=== PATIENT | female | born 1980 | race Caucasian/White ===

== ENCOUNTER → 2016-08-14 09:59 | Day surgery (SDC) | payer BC ==
[~2016-08-14 09:59] MED LIST: Buffered Lidocaine 1% SYRIN* 3 ML/SYR SYRINGE INTRADERM ONE; Bupivacaine 0.5% SDV PF* 30 ML VIAL ONE; Clindamycin 900 MG IVPREMIX(* 900 MG/50 ML SDV IV ONE; Dexamethasone IV* 4 MG/ML 1 ML (4 MG) ONE; Famotidine IV* 10 MG/ML 2 ML (20 mg) IV ONE; Famotidine IV* 10 MG/ML 2 ML (20 mg) ONE; Flumazenil* 0.1 MG/ML 5 ML MDV ONE; KETAMINE HCL* 50 MG/ML 10 ML VIAL ONE; Ketorolac INJ* 30 MG/ML 1 ML VIAL ONE; Lidocaine 2% PF* 10 ML AMP ONE; Lidocaine 2% PF* 5 ML VIAL ONE; Midazolam* 1 MG/ML 5 ML VIAL (5 MG) ONE; Morphine INJ* 2 MG/ML 1 ML SYRINGE IV PRN; Ondansetron INJ* 2 MG/ML VIAL ONE; PROCHLORPERAZINE INJ 5 MG/ML 2 ML VIAL IV PRN; Propofol* 10 MG/ML 20 ML BTL IV PUSH ONE; fentaNYL* 50 MCG/ML 2 ML VIAL (100 MCG VIAL) IV PRN; fentaNYL* 50 MCG/ML 2 ML VIAL (100 MCG VIAL) ONE; oxyCODONE/Acetamin 5/325 MG* TAB PO PRN
[2016-08-14 10:07] LABS: UR Preg Internal Control QC Line Present
[2016-08-14 14:12] VITALS: BP 109/81
--- NOTE | 2016-08-15 09:58 | OP ---
OPERATIVE REPORT: DATE OF OPERATION: 08/14/16 DATE OF : 76 SURGEON: Tylor Box MD. CNA GNA: "Nyla Crowley student. PRE-OP DIAGNOSIS: Right hallux rigidus. POST-OP DIAGNOSIS: Right hallux rigidus. OPERATIVE PROCEDURE: Cheilectomy, right first MTP joint. DESCRIPTION OF PROCEDURE: The patient was taken to the operating room where a longitudinal incision was made over the dorsum of the first MTP joint. The capsule was reflected and we removed the dors al osteophyte with the microsagittal saw. There was some eburnated cartilage in the central aspect o f the metatarsal head, which was drilled with a 0.045 C-wire. A small rim of dorsal osteophyte was removed from the proximal phalanx. It was then irrigated thoroughly, closing the capsule with 3-0 V icryl sutures and nylon for the skin, and a compression dressing and plaster splint applied. [id number]/[facility] #: [id number]
== END | disposition home or self-care (01) ==
LOC: OR 09:59
PROVIDERS: ATTEND Orthopaedic Surgery
DX: M20.21 Hallux rigidus, right foot (principal); Z88.0 Allergy status to penicillin; Z88.2 Allergy status to sulfonamides; Z87.891 Personal history of nicotine dependence; F32.9 Major depressive disorder, single episode, unspecified; F41.9 Anxiety disorder, unspecified
CPT/HCPCS: 81025; 88304; 88311; J1100; J1885; J2001; J2250; J2405; J2704; J3010